=== PATIENT | female | born 1960 | race Caucasian/White ===

== ENCOUNTER → 2017-04-03 | Outpatient (CLI) | payer BC | END | disposition home or self-care (01) | LOC: KCIC 12:33 | DX: R07.81 Pleurodynia (principal) | CPT/HCPCS: 71101 ==

== ENCOUNTER → 2019-09-28 | Outpatient (CLI) | payer BC ==
[2015-10-06 04:27] VITALS: BP 129/61
[~2019-09-28] MED LIST: CIPR500T94 PO; IBUP-1060 PO; OMEP20TA8 PO; OXYC1TAB15 PO; POTA10TA12 PO; ROPI0.5T PO; TRIA1CAP3 PO; VENTOLIN HFA18 GM IH
--- NOTE | 2019-09-28 08:21 | RAD ---
INDICATION: Reason: LT RENAL MASS / Spl. Instructions: / History: COMPARISON: March 2015 TECHNIQUE: Grayscale and color ultrasound images obtained of the bilateral kidneys and bladder. FINDINGS: Right Kidney: 111 mm. No hydronephrosis. Left Kidney: 150 mm. No hydronephrosis. Cystic lesion measuring 73 x 69 mm. Bladder: Minimal urine within IMPRESSION: * No hydronephrosis. * Left renal cyst. Appears slightly increased when compared to 2016 * Partially visualized liver is echogenic. Nonspecific but can be seen with fatty infiltration. Electronically signed by: Brenton Peterson MD (09/28/2019 8:18 AM) [id number]
== END | disposition home or self-care (01) ==
LOC: US 10:49
PROVIDERS: ATTEND Family Medicine
DX: N28.1 Cyst of kidney, acquired (principal); N28.89 Other specified disorders of kidney and ureter
CPT/HCPCS: 76770

== ENCOUNTER → 2020-08-31 | Outpatient (CLI) | payer BC ==
[2015-10-06 04:27] VITALS: BP 129/61
--- NOTE | 2020-08-31 15:13 | KCIC ---
Bilateral digital screening mammograms with 3-D tomosynthesis: Reason for examination: Routine baseline screening. Bilateral mammograms in CC and oblique projections were obtained with 2-D imaging and 3-D tomosynthes is imaging on a [email or web address] Inspiration unit and reviewed on the workstation. Interpretation was made with the benefit of CAD. The skin and nipples show no abnormalities. No abnormal axillary lymph nodes are seen. The breast par enchyma is predominantly fatty. (Breast density: Category A.) There are no dominant masses, suspiciou s calcifications or architectural distortion. Impression: No evidence of malignancy. Recommend routine screening. BI-RAD Category 1: Negative. "Our facility is accredited by the [employer] Mammography Program." This patient's information has been entered into a reminder system for the patient to be notified wit h the results of her examination and a target date for the next mammogram. Electronically signed by: Loree Hanson MD (08/31/2020 3:11 PM) [id number]
--- NOTE | 2020-08-31 15:44 | KCIC ---
Exam Date: 08/31/2020 12:53 PM MRI RIGHT UPPER EXTREMITY JOINT WITHOUT CONTRAST Indication: Reason: Right shoulder pain. / Spl. Instructions: Repetitive motion at work. / History: P revious surgery, pt. lifts patients at work. Persistent pain since 01/2020. TECHNIQUE: Routine multiplanar MR imaging of the shoulder was performed without contrast. FINDINGS: Postoperative changes are noted with susceptibility artifact which limits evaluation. There is a full-thickness tear of the infraspinatus tendon with retraction to the top of the humeral head the inferior fibers of the infraspinatus tendon are likely intact. There is a partial-thickness articular sided delamination tear involving the supraspinatus tendon wit h retraction of the torn fibers to the glenohumeral joint. The teres minor and subscapularis tendons are intact. There is fatty atrophy of the infraspinatus muscle. Other visualized rotator cuff muscles demonstrate normal signal and bulk. Moderate degenerative changes are seen at the AC joint. There is an intact type II acromion. Modera te fluid is seen in the subacromial/subdeltoid bursa which is continuous with a glenohumeral joint ef fusion. Long head of the biceps tendon is intact. Labrum degenerative signal seen throughout the labrum, tho ugh lack of intra-articular contrast limits evaluation. Moderate degenerative changes are seen at the glenohumeral joint. Bone marrow demonstrates benign si gnal on all sequences without acute fracture. IMPRESSION: Postoperative changes limit evaluation slightly. Full-thickness tear of the infraspinatus tendon with retraction. Fatty atrophy of the infraspinatus m uscle noted. Partial thickness articular sided delamination tear of the supraspinatus tendon with retraction. Electronically signed by: Bashir Wilkerson MD (08/31/2020 3:42 PM) [id number]
--- NOTE | 2020-09-01 08:18 | KCIC ---
PQRS Compliance Statement: One or more of the following individualized dose reduction techniques were utilized for this examinat ion: 1. Automated exposure control 2. Adjustment of the mA and/or kV according to patient size 3. Use of iterative reconstruction technique CT LOW DOSE LUNG SCREEN Clinical Indication: Reason: Lung cancer screening, smoker of 24 yrs., 2pk/day. Quit 2004. Comparison: CT chest without contrast January 25, 2015. TECHNIQUE: Helical CT imaging of the chest is performed without IV contrast using low-dose technique. Findings: The thyroid is symmetric. There are subcentimeter bilateral axillary and mediastinal lymph nodes. The re is no adenopathy. Limited evaluation of the ana maría without IV contrast. The great vessels are normal caliber. There is coronary artery disease of the proximal LAD. The cardiac size is normal, no perica rdial effusion. There is no pleural effusion. The central airways are patent. There is a triangle shaped nodule along the minor fissure that is stable compared to the prior study and compatible with a perifissural lymp h node, image 142 of series 6. There is a 6 mm nodule in the right lower lobe that is also stable, im age 89. There is no lung consolidation. There is postsurgical change of the stomach. There is an incompletely imaged left renal cyst that is similar to prior study and does not require follow-up. The thoracic spine alignment is maintained. There is a large Schmorl's node superior endplate of T12. IMPRESSION: 1. There are 2 right lung pulmonary nodules that are stable compared to 2015 and are considered kristina gn. Continue annual screening with low-dose CT in 12 months. 2. Coronary artery disease. 3. Lung RADS category 1. Electronically signed by: Jonel Argueta MD (09/01/2020 8:15 AM) [facility]
== END ==
LOC: KCIC MRI 12:37
PROVIDERS: ATTEND Family Medicine
DX: Z12.31 Encounter for screening mammogram for malignant neoplasm of breast (principal); Z12.2 Encounter for screening for malignant neoplasm of respiratory organs; M75.121 Complete rotator cuff tear or rupture of right shoulder, not specified as traumatic; M62.58 Muscle wasting and atrophy, not elsewhere classified, other site; M25.411 Effusion, right shoulder; M19.011 Primary osteoarthritis, right shoulder; R91.8 Other nonspecific abnormal finding of lung field; I25.10 Atherosclerotic heart disease of native coronary artery without angina pectoris; Z87.891 Personal history of nicotine dependence
CPT/HCPCS: 71271; 73221; 77063; 77067